=== PATIENT | male | born 1960 ===

== ENCOUNTER 2019-05-05 03:37 | Emergency (ER) | payer MEDICAID ==
[~2019-05-05] VITALS: Ht 165.1 cm; Wt 90.0 kg
[2019-05-05 03:40] VITALS: BP 200/121
[2019-05-05] MEDS ORDERED: AMOX-422 PO (04:24)
[2019-05-05] MEDS ORDERED: CIPR10DR RIGHT EAR (04:24)
[2019-05-05] MEDS ORDERED: amox tr/potassium clavulanate 875/125mg TAB PO ONE (04:25)
[2019-05-05] MEDS ORDERED: acetaminophen 325mg tablet PO ONE (04:25)
== END 2019-05-05 04:54 | disposition home or self-care (01) ==
LOC: ER 03:38
DX: H60.91 Unspecified otitis externa, right ear (principal); Z59.0 Homelessness; Z79.899 Other long term (current) drug therapy
CPT/HCPCS: 99283